=== PATIENT | female | born 1950 | race Caucasian/White ===

== ENCOUNTER 2017-07-06 07:40 | Day surgery (SDC) | payer MEDICARE, BC ==
[~2017-07-06 07:40] MED LIST: LIDOCAINE HCL 1% MPF SOL ONE; PROPOFOL 500 MG/50 ML EMU IV ONE
[2017-07-06 09:53] VITALS: BP 162/82; PULSE 64; RESP 18; TEMP 97.6; O2SAT 97
== END 2017-07-06 10:45 | disposition home or self-care (01) | DRG 951 ==
LOC: SURG 07:40
PROVIDERS: ATTEND Surgery
DX: Z12.11 Encounter for screening for malignant neoplasm of colon (principal); D12.3 Benign neoplasm of transverse colon; Z86.010 Personal history of colon polyps; Z98.0 Intestinal bypass and anastomosis status; K57.30 Diverticulosis of large intestine without perforation or abscess without bleeding
CPT/HCPCS: J2001; J2704

== ENCOUNTER 2018-06-29 11:11 | Outpatient (CLI) | payer BC, MEDICARE ==
[2017-07-06 09:53] VITALS: O2SAT 97
== END 2018-06-29 11:12 | disposition home or self-care (01) | DRG 554 ==
LOC: CONVCARE 11:11
PROVIDERS: ATTEND Orthopaedic Surgery
DX: M17.11 Unilateral primary osteoarthritis, right knee (principal)
CPT/HCPCS: 73562

== ENCOUNTER 2018-07-27 05:22 | Inpatient (IN) | payer BC ==
[2018-07-27] MEDS: SCOPOLAMINE 1.5MG PATCH TD SCH (05:46)
[2018-07-27] MEDS ORDERED: CELECOXIB 100 MG CAP PO SCH (06:00)
[2018-07-27] MEDS ORDERED: LACTATED RINGERS 1,000 ML IV ONE (06:00)
[2018-07-27] MEDS ORDERED: BUPIVACAINE HCL 0.25% MPF 30 ML SOL INFIL ONE (06:55)
[2018-07-27] MEDS ORDERED: SODIUM CHLORIDE 20 ML 40 ML ONE (06:55)
[2018-07-27] MEDS ORDERED: BUPIVACAINE LIPOSOME 20 ML SUS ONE (06:55)
[2018-07-27] MEDS ORDERED: TRANEXAMIC ACID 100 MG/ML SOL ONE (06:57)
[2018-07-27] MEDS ORDERED: LACTATED RINGERS 1,000 ML IV SCH (07:00)
[2018-07-27] MEDS ORDERED: PROPOFOL 500 MG/50 ML EMU IV ONE (07:31)
[2018-07-27] MEDS ORDERED: ONDANSETRON HCL 4 MG/2 ML SOL ONE (07:31)
[2018-07-27] MEDS ORDERED: DEXAMETHASONE 20 MG/5 ML (4 MG/ML SOL) ONE (07:31)
[2018-07-27] MEDS ORDERED: FENTANYL 100MCG/2ML SOL ONE ×2 (07:31→09:20)
[2018-07-27] MEDS ORDERED: PHENYLEPHRINE HYDROCHLORIDE 10 MG/ML SOL ONE (07:31)
[2018-07-27] MEDS ORDERED: MIDAZOLAM 2 MG/2 ML SOL ONE (07:31)
[2018-07-27] MEDS ORDERED: MORPHINE SULFATE 0.5 MG/ML SOL ONE (07:31)
[2018-07-27] MEDS ORDERED: BUPIVACAINE HCL IN DEXTROSE/PF 2 ML AMPUL IJ ONE (07:36)
[2018-07-27] MEDS ORDERED: EPHEDRINE SULFATE 50 MG/ML SOL ONE (08:14)
[2018-07-27] MEDS ORDERED: CEFAZOLIN SODIUM 1 GM PDS IV ONE (08:19)
[2018-07-27] MEDS ORDERED: KETAMINE HYDROCHLORIDE 50 MG/ML SOL ONE (09:20)
[2018-07-27] MEDS ORDERED: PROPOFOL 10 MG/ML 200 MG/20 ML EMU IV ONE (09:24)
[2018-07-27] MEDS ORDERED: MORPHINE SULFATE 10 MG/ML SOL IV PRN (09:47)
[2018-07-27] MEDS ORDERED: ACETAMINOPHEN 325 MG PO PRN (09:47)
[2018-07-27] MEDS ORDERED: ONDANSETRON 4 MG ODT BU PRN (09:47)
[2018-07-27] MEDS ORDERED: SODIUM CHLORIDE 0.9% 500 ML 500 ML IV PRN (09:47)
[2018-07-27] MEDS: SODIUM CHLORIDE 0.9% FLUSH 10 ML SOL IV SCH ×2 (11:17→18:28)
[2018-07-27] MEDS: DEXTROSE/SALINE 0.45/KCL 20MEQ 1,000 ML/1,000 ML SOL IV SCH ×2 (11:17→22:02)
[2018-07-27] MEDS ORDERED: CEFAZOLIN SODIUM 1 GM PDS ONE ×2 (13:39→21:52)
[2018-07-27] MEDS ORDERED: SODIUM CHLORIDE 0.9% 100 ML 100 ML IV ONE ×2 (13:39→21:52)
[2018-07-27] MEDS: CEFAZOLIN SODIUM 1 GM PDS 2 GM in SODIUM CHLORIDE 0.9% 100 ML 100 ML IV SCH ×2 (14:26→22:00)
[2018-07-27] MEDS: CHOLECALCIFEROL 1,000 IU TAB PO SCH (20:31)
[2018-07-27] MEDS: SENNOSIDES A AND B 8.6 MG TAB PO SCH (20:31)
[2018-07-27] MEDS: APAP/HYDROCODONE 1 EACH TABLET PO PRN (20:31)
[2018-07-27] MEDS ORDERED: VITAMIN D PO SCH (21:00)
[2018-07-28] MEDS: APAP/HYDROCODONE 1 EACH TABLET PO PRN ×6 (01:00→23:29)
[2018-07-28] MEDS: SODIUM CHLORIDE 0.9% FLUSH 10 ML SOL IV SCH ×3 (01:01→18:58)
[2018-07-28] MEDS: LEVOTHYROXINE SODIUM 50 MCG TAB PO SCH (06:12)
[2018-07-28 07:25] LABS: HEMOGLOBIN 10.4 gm/dl (12.0-15.5); MEAN CORPUSCULAR HGB CONC 33.2 gm/dl (32.0-36.0)
[2018-07-28] MEDS: RIVAROXABAN 10 MG TAB PO SCH (08:54)
[2018-07-28] MEDS: FERROUS GLUCONATE 324 MG TABLET PO SCH (08:54)
[2018-07-28] MEDS ORDERED: ARIPIPRAZOLE 20 MG PO SCH (09:00)
[2018-07-28] MEDS ORDERED: ARIPIPRAZOLE 5 MG TAB PO SCH (09:00)
[2018-07-28] MEDS: AMLODIPINE 5 MG TAB PO SCH (10:17)
[2018-07-28] MEDS: LISINOPRIL 20 MG TAB PO SCH (10:19)
[2018-07-28] MEDS: SERTRALINE HYDROCHLORIDE 50 MG TAB PO SCH (10:20)
[2018-07-28] MEDS: CHOLECALCIFEROL 1,000 IU TAB PO SCH ×2 (11:40→20:50)
[2018-07-28] MEDS: ARIPIPRAZOLE 20 MG TAB PO SCH (11:41)
[2018-07-28] MEDS: SENNOSIDES A AND B 8.6 MG TAB PO SCH (20:49)
[2018-07-29] MEDS: SODIUM CHLORIDE 0.9% FLUSH 10 ML SOL IV SCH ×3 (04:50→21:09)
[2018-07-29] MEDS: APAP/HYDROCODONE 1 EACH TABLET PO PRN ×4 (05:42→23:41)
[2018-07-29] MEDS: LEVOTHYROXINE SODIUM 50 MCG TAB PO SCH (06:51)
[2018-07-29 07:27] LABS: HEMOGLOBIN 10.6 gm/dl (12.0-15.5); MEAN CORPUSCULAR HEMOGLOBIN 30.5 pg (27.0-32.0); MEAN CORPUSCULAR HGB CONC 33.9 gm/dl (32.0-36.0)
[2018-07-29] MEDS: FERROUS GLUCONATE 324 MG TABLET PO SCH (08:27)
[2018-07-29] MEDS: ARIPIPRAZOLE 20 MG TAB PO SCH (08:27)
[2018-07-29] MEDS: AMLODIPINE 5 MG TAB PO SCH (08:28)
[2018-07-29] MEDS: CHOLECALCIFEROL 1,000 IU TAB PO SCH ×2 (08:28→21:09)
[2018-07-29] MEDS: LISINOPRIL 20 MG TAB PO SCH (08:29)
[2018-07-29] MEDS: RIVAROXABAN 10 MG TAB PO SCH (08:29)
[2018-07-29] MEDS: SERTRALINE HYDROCHLORIDE 50 MG TAB PO SCH (08:30)
[2018-07-29] MEDS: DIAZEPAM 5 MG TAB PO PRN (08:31)
[2018-07-29] MEDS: SENNOSIDES A AND B 8.6 MG TAB PO SCH (21:10)
[2018-07-30] MEDS: APAP/HYDROCODONE 1 EACH TABLET PO PRN ×5 (02:52→22:14)
[2018-07-30] MEDS: SODIUM CHLORIDE 0.9% FLUSH 10 ML SOL IV SCH ×2 (02:53→15:22)
[2018-07-30] MEDS: LEVOTHYROXINE SODIUM 50 MCG TAB PO SCH (06:30)
[2018-07-30 07:42] LABS: HEMOGLOBIN 10.4 gm/dl (12.0-15.5); MEAN CORPUSCULAR HEMOGLOBIN 29.5 pg (27.0-32.0); MEAN CORPUSCULAR HGB CONC 32.4 gm/dl (32.0-36.0)
[2018-07-30] MEDS: FERROUS GLUCONATE 324 MG TABLET PO SCH (08:10)
[2018-07-30] MEDS: ARIPIPRAZOLE 20 MG TAB PO SCH (08:10)
[2018-07-30] MEDS: DOCUSATE SODIUM 100 MG SGL PO PRN ×2 (08:10→21:14)
[2018-07-30] MEDS: AMLODIPINE 5 MG TAB PO SCH (08:11)
[2018-07-30] MEDS: RIVAROXABAN 10 MG TAB PO SCH (08:12)
[2018-07-30] MEDS: CHOLECALCIFEROL 1,000 IU TAB PO SCH ×2 (08:12→21:12)
[2018-07-30] MEDS: LISINOPRIL 20 MG TAB PO SCH (08:12)
[2018-07-30] MEDS: SERTRALINE HYDROCHLORIDE 50 MG TAB PO SCH (08:13)
[2018-07-30] MEDS: DIAZEPAM 5 MG TAB PO PRN (15:04)
[2018-07-30] MEDS: SENNOSIDES A AND B 8.6 MG TAB PO SCH (21:11)
[2018-07-31 01:12] VITALS: RESP 16
[2018-07-31] MEDS: APAP/HYDROCODONE 1 EACH TABLET PO PRN ×2 (06:01→13:05)
[2018-07-31] MEDS: LEVOTHYROXINE SODIUM 50 MCG TAB PO SCH (06:01)
[2018-07-31 08:39] VITALS: TEMP 97.5
[2018-07-31] MEDS: ARIPIPRAZOLE 20 MG TAB PO SCH (09:26)
[2018-07-31] MEDS: CHOLECALCIFEROL 1,000 IU TAB PO SCH (09:26)
[2018-07-31] MEDS: FERROUS GLUCONATE 324 MG TABLET PO SCH (09:27)
[2018-07-31] MEDS: RIVAROXABAN 10 MG TAB PO SCH (09:28)
[2018-07-31] MEDS: LISINOPRIL 20 MG TAB PO SCH (09:28)
[2018-07-31] MEDS: AMLODIPINE 5 MG TAB PO SCH (09:30)
[2018-07-31] MEDS: SERTRALINE HYDROCHLORIDE 50 MG TAB PO SCH (09:31)
[2018-07-31] MEDS: SCOPOLAMINE 1.5MG PATCH TD SCH (15:46)
[2018-07-31 16:19] VITALS: BP 136/80; PULSE 66; O2SAT 96
== END 2018-07-31 19:05 | disposition swing bed (61) | DRG 470 ==
LOC: ACUTE CARE 05:22
PROVIDERS: ADMIT Orthopaedic Surgery; ATTEND Orthopaedic Surgery
PROC: F01L5YZ Range of Motion and Joint Integrity Assessment of Musculoskeletal System - Lower Back / Lower Extremity using Other Equipment (ICD-10-PCS; 2018-07-27)
PROC: F01L0FZ Muscle Performance Assessment of Musculoskeletal System - Lower Back / Lower Extremity using Assistive, Adaptive, Supportive or Protective Equipment (ICD-10-PCS; 2018-07-27)
PROC: F01ZBFZ Bed Mobility Assessment using Assistive, Adaptive, Supportive or Protective Equipment (ICD-10-PCS; 2018-07-27)
PROC: 0SRC0J9 Replacement of Right Knee Joint with Synthetic Substitute, Cemented, Open Approach (ICD-10-PCS; principal; 2018-07-27 08:00)
PROC: F02Z1ZZ Dressing Assessment (ICD-10-PCS; 2018-07-28)
PROC: F02Z3ZZ Grooming/Personal Hygiene Assessment (ICD-10-PCS; 2018-07-28)
DX: M21.061 Valgus deformity, not elsewhere classified, right knee (principal); R73.03 Prediabetes
CPT/HCPCS: 36415; 73560; 82962; 85027; 85049; 94150; 99070; J0690; J1100; J2250; J2274; J2405; J3010; A6232; A9270-GY; J2370; J2704; J3490; Q3014

== ENCOUNTER 2018-07-31 17:01 | Inpatient (IN) | payer BC ==
[2018-07-31] MEDS ORDERED: ONDANSETRON 4 MG ODT BU PRN (19:35)
[2018-07-31] MEDS ORDERED: ACETAMINOPHEN 325 MG PO PRN (19:35)
[2018-07-31] MEDS ORDERED: DOCUSATE SODIUM 100 MG SGL PO PRN (19:35)
[2018-07-31] MEDS: CHOLECALCIFEROL 1,000 IU TAB PO SCH (20:43)
[2018-07-31] MEDS: SENNOSIDES A AND B 8.6 MG TAB PO SCH (20:43)
[2018-07-31] MEDS: APAP/HYDROCODONE 1 EACH TABLET PO PRN ×2 (20:43→21:59)
[2018-08-01] MEDS: APAP/HYDROCODONE 1 EACH TABLET PO PRN ×5 (06:58→21:12)
[2018-08-01] MEDS: LEVOTHYROXINE SODIUM 50 MCG TAB PO SCH (07:03)
[2018-08-01] MEDS: FERROUS GLUCONATE 324 MG TABLET PO SCH (08:51)
[2018-08-01] MEDS: RIVAROXABAN 10 MG TAB PO SCH (08:51)
[2018-08-01] MEDS: LISINOPRIL 20 MG TAB PO SCH (08:52)
[2018-08-01] MEDS: AMLODIPINE 5 MG TAB PO SCH (08:52)
[2018-08-01] MEDS: PRAVASTATIN SODIUM 20 MG TAB PO SCH (08:53)
[2018-08-01] MEDS: CHOLECALCIFEROL 1,000 IU TAB PO SCH ×2 (08:53→20:11)
[2018-08-01] MEDS ORDERED: LEVOTHYROXINE SODIUM 50 MCG TAB PO SCH (09:00)
[2018-08-01] MEDS: SERTRALINE HYDROCHLORIDE 50 MG TAB PO SCH (09:27)
[2018-08-01] MEDS: ARIPIPRAZOLE 20 MG TAB PO SCH ×2 (10:57→12:21)
[2018-08-01 13:07] VITALS: RESP 16
[2018-08-01] MEDS: SENNOSIDES A AND B 8.6 MG TAB PO SCH (20:11)
[2018-08-02] MEDS: APAP/HYDROCODONE 1 EACH TABLET PO PRN ×3 (02:53→12:41)
[2018-08-02] MEDS: LEVOTHYROXINE SODIUM 50 MCG TAB PO SCH (07:53)
[2018-08-02] MEDS: PRAVASTATIN SODIUM 20 MG TAB PO SCH (09:20)
[2018-08-02] MEDS: RIVAROXABAN 10 MG TAB PO SCH (09:21)
[2018-08-02] MEDS: AMLODIPINE 5 MG TAB PO SCH (09:21)
[2018-08-02] MEDS: FERROUS GLUCONATE 324 MG TABLET PO SCH (09:21)
[2018-08-02] MEDS: SERTRALINE HYDROCHLORIDE 50 MG TAB PO SCH (09:21)
[2018-08-02] MEDS: LISINOPRIL 20 MG TAB PO SCH (09:21)
[2018-08-02] MEDS: CHOLECALCIFEROL 1,000 IU TAB PO SCH (09:21)
[2018-08-02] MEDS: ARIPIPRAZOLE 20 MG TAB PO SCH (09:21)
[2018-08-02 10:10] VITALS: BP 129/78; PULSE 63; TEMP 97.4; O2SAT 95
== END 2018-08-02 13:00 | DRG 561 ==
LOC: ACUTE CARE 19:10
PROVIDERS: ADMIT Family Medicine; ATTEND Family Medicine
PROC: F01ZBZZ Bed Mobility Assessment (ICD-10-PCS; principal; 2018-08-01)
PROC: F01ZDFZ Gait and/or Balance Assessment using Assistive, Adaptive, Supportive or Protective Equipment (ICD-10-PCS; 2018-08-01)
DX: Z47.1 Aftercare following joint replacement surgery (principal); Z96.651 Presence of right artificial knee joint; L84 Corns and callosities; E03.9 Hypothyroidism, unspecified; Z79.899 Other long term (current) drug therapy
CPT/HCPCS: A9270-GY